=== PATIENT | male | born 1940 | race Caucasian/White ===

== ENCOUNTER 2016-09-04 05:54 | Inpatient (IN) | payer OTHER ==
[~2016-09-04] VITALS: Ht 180.3 cm; Wt 93.0 kg
[~2016-09-04 05:54] MED LIST: ASPIRIN EC325 MG PO; FISH OIL 1,0001 EAC7 PO; HYDROCODON-ACE1 EAC7 PO; IRON325 M1 PO; METAMUCIL POWD798 GM PO; MOBIC15 MG PO; RED YEAST RICE600 MG PO; STOOL SOFTENER100 M1 PO; TYLENOL PM1 CAPLET PO
[2016-09-04 06:51] VITALS: BP 156/74
[2016-09-04 12:50] VITALS: BP 156/77
[2016-09-04 15:36] VITALS: BP 158/75
[2016-09-04 19:53] VITALS: BP 129/68
[2016-09-05] VITALS (7 sets, daily range): BP systolic 119–161; BP diastolic 61–73
[2016-09-05 06:43] LABS: HEMATOCRIT 36.7 % (38.0-50.0); MCV 90.6 FL (86-99)
[2016-09-05 07:02] LABS: ANION GAP 11 MEQ/L (2-14); CHLORIDE 103 MEQ/L (99-109); GFR ESTIMATE (CALCULATED) > 59 mL/min/; GLUCOSE 150 mg/dL (70-99); POTASSIUM 3.9 MEQ/L (3.7-5.4); SAMPLE HEMOLYSIS CHECK 0; SAMPLE ICTERIC CHECK 0; SAMPLE LIPEMIA CHECK 0; SODIUM 136 MEQ/L (136-147); UREA NITROGEN (BUN) 19 mg/dL (9-23)
[2016-09-06 03:54] VITALS: BP 111/54
[2016-09-06 05:35] LABS: HEMATOCRIT 36.3 % (38.0-50.0); MCV 90.5 FL (86-99)
[2016-09-06 08:00] VITALS: BP 150/70
[2016-09-06] MEDS ORDERED: ASPIRIN EC325 MG PO (08:19)
[2016-09-06] MEDS ORDERED: IRON325 M1 PO (08:19)
[2016-09-06] MEDS ORDERED: HYDROCODON-ACE1 EAC7 PO (08:20)
[2016-09-06 12:00] VITALS: BP 134/62
[2016-09-06 14:51] VITALS: BP 144/60
== END 2016-09-06 14:51 | DRG 470 ==
LOC: 2SOUTH 05:54 → 3WEST 12:14 → 2SOUTH 14:37 → 3WEST 09-06 14:51
PROVIDERS: Orthopaedic Surgery
PROC: 0SRD0J9 Replacement of Left Knee Joint with Synthetic Substitute, Cemented, Open Approach (ICD-10-PCS; principal; 2016-09-04)
DX: M17.12 Unilateral primary osteoarthritis, left knee (principal); I35.0 Nonrheumatic aortic (valve) stenosis; M10.9 Gout, unspecified; E78.5 Hyperlipidemia, unspecified; N40.0 Benign prostatic hyperplasia without lower urinary tract symptoms; Z96.651 Presence of right artificial knee joint
CPT/HCPCS: 80048; 85014; 85018; J0690; J1100; J1885; J2250; J2405; J3010; J3370; J7050; J7120; S0020